=== PATIENT | female | born 1955 | race Caucasian/White ===

== ENCOUNTER 2020-05-26 09:36 | Outpatient (CLI) | payer BC, SELFPAY ==
--- NOTE | ~2020-05-26 | MM_ITS ---
EXAMINATION: MM screening [facility] w [facility] HISTORY: Screening mammogram TECHNIQUE: Craniocaudal and mediolateral oblique 3-D tomosynthesis images were obtained and synthetic 2-D images were generated. CAD analysis was submitted and interpreted. COMPARISON: 05/12/2019, 05/19/2018, 05/07/2017 bilateral digital screening mammogram examinations BREAST PARENCHYMAL COMPOSITION: There are scattered areas of fibroglandular density. FINDINGS: Multiple stable bilateral benign appearing intramammary lymph nodes are again noted. There is no evidence of suspicious mass, calcification, or architectural distortion to suggest malignancy i n either breast. There has been no suspicious interval change. IMPRESSION: 1. No mammographic evidence of malignancy. 2. Recommend routine screening mammography in one year. BI-RADS Category 2: Benign finding(s). Reviewed, dictated and finalized at location A.
== END 2020-05-26 09:37 | disposition home or self-care (01) ==
LOC: ANHIMG 09:39
PROVIDERS: PCP Family Medicine; Visit Provider Nurse Practitioner Obstetrics & Gynecology
DX: Z12.31 Encounter for screening mammogram for malignant neoplasm of breast (principal)
CPT/HCPCS: 77063; 77067

== ENCOUNTER 2021-07-10 13:09 | Outpatient (CLI) | payer BC, SELFPAY ==
--- NOTE | ~2021-07-10 | DEXA_ITS ---
Bone Density Report Name: Blanca Saxena Age: 65 Sex: Female Ethnicity: White Date of : 1955 Indication: postmenopausal osteoporosis; monitoring treatment; Referring Provider: Carol, Anisa Pollard Study: Bone densitometry was performed. Exam Date: July 10, 2021 Accession number: [id number] Bone Density: Region BMD T-score Z-score Classification AP Spine (L1, L2) 0.748 -2.1 -0.5 Osteopenia Femoral Neck (Left) 0.700 -1.3 0.1 Osteopenia Total Hip (Left) 0.709 -1.9 -0.8 Osteopenia Total Hip Bilateral Avg 0.742 -1.7 -0.5 Osteopenia Femoral Neck (Right) 0.723 -1.1 0.3 Osteopenia Total Hip (Right) 0.774 -1.4 -0.2 Osteopenia World Health Organization criteria for BMD impression classify patients as: Normal (T-score at or above -1.0), Osteopenia (T-score between -1.0 and -2.5), or Osteoporosis (T-score at or below -2.5). 10-year Fracture Risk: FRAX not reported because: Treated for osteoporosis Previous Exams: Region Exam Age BMD T-score BMD Change BMD Change Date g/cm2 vs Baseline vs Previous AP Spine(L1, L2) 07/10/2021 65 0.748 -2.1 0.039(5.4%)# 0.040(5.7%)# 05/12/2019 63 0.708 -2.5 -0.002(-0.2%)# -0.018(-2.5%) 05/07/2017 61 0.727 -2.3 0.017(2.4%)# -0.017(-2.2%) 04/29/2015 59 0.743 -2.1 0.033(4.7%)# 0.006(0.8%)# 04/24/2013 57 0.738 -2.2 0.028(3.9%)# -0.047(-6.0%)# 04/19/2011 55 0.785 -1.8 0.075(10.5%)* -0.021(-2.6%) 04/17/2010 54 0.806 -1.6 0.096(13.5%)* 0.014(1.8%) 04/12/2009 53 0.791 -1.7 0.081(11.5%)* 0.081(11.5%)* 04/08/2008 52 0.710 -2.4 Total Hip(Left) 07/10/2021 65 0.709 -1.9 -0.010(-1.3%)# -0.002(-0.3%)# 05/12/2019 63 0.711 -1.9 -0.008(-1.1%)# -0.002(-0.3%) 05/07/2017 61 0.713 -1.9 -0.006(-0.8%)# 0.012(1.7%) 04/29/2015 59 0.701 -2.0 -0.018(-2.5%)# -0.053(-7.0%)# 04/24/2013 57 0.754 -1.5 0.035(4.9%)# 0.006(0.8%)# 04/19/2011 55 0.748 -1.6 0.029(4.1%)* -0.009(-1.1%) 04/17/2010 54 0.756 -1.5 0.038(5.3%)* 0.013(1.7%) 04/12/2009 53 0.743 -1.6 0.025(3.5%) 0.025(3.5%) 04/08/2008 52 0.718 -1.8 Total Hip(Right) 07/10/2021 65 0.774 -1.4 0.010(1.3%)# 0.015(2.0%)# 05/12/2019 63 0.759 -1.5 -0.005(-0.7%)# -0.009(-1.2%) 05/07/2017 61 0.768 -1.4 0.004(0.5%)# -0.003(-0.4%) 04/29/2015 59 0.771 -1.4 0.007(0.9%)# -0.018(-2.2%)# 04/24/2013 57 0.788 -1.3 0.024(3.2%)# 0.006(0.8%)# 04/19/2011 55 0.782 -1.3 0.018(2.3%) -0.020(-2.5%) 04/17/2010 54 0.802 -1.1 0.038(5.0%)* 0.018(2.3%) 04/12/2009 53 0.784 -1.3 0.020(2.7%) 0.020(2.7%)
--- NOTE | ~2021-07-10 | MM_ITS ---
EXAMINATION: MM screening [facility] BI w steven HISTORY: Screening TECHNIQUE: Craniocaudal and mediolateral oblique 3-D tomosynthesis images were obtained and synthetic 2-D images were generated. CAD analysis was submitted and interpreted. COMPARISON: Comparison to multiple prior studies sequentially, with oldest reviewed study dated 04/29. BREAST PARENCHYMAL COMPOSITION: There are scattered areas of fibroglandular density. FINDINGS: Stable benign-appearing bilateral breast masses in the upper outer quadrants. There is no e vidence of suspicious mass, calcification, or architectural distortion to suggest malignancy in eithe r breast. There has been no suspicious interval change. IMPRESSION: 1. No mammographic evidence of malignancy. 2. Recommend routine screening mammography in one year. BI-RADS Category 2: Benign finding(s). Reviewed, dictated and finalized at location A.
== END 2021-07-10 13:10 | disposition home or self-care (01) ==
LOC: ANHIMG 07-11 13:09
PROVIDERS: PCP Family Medicine; Visit Provider Nurse Practitioner Obstetrics & Gynecology
DX: Z12.31 Encounter for screening mammogram for malignant neoplasm of breast (principal); Z78.0 Asymptomatic menopausal state; M85.89 Other specified disorders of bone density and structure, multiple sites
CPT/HCPCS: 77063; 77067; 77080

== ENCOUNTER 2022-08-08 08:23 | Outpatient (CLI) | payer BC, SELFPAY ==
--- NOTE | ~2022-08-08 | MM_ITS ---
EXAMINATION: MM screening [facility] w [facility] HISTORY: Screening mammogram TECHNIQUE: Craniocaudal and mediolateral oblique 3-D tomosynthesis images were obtained and synthetic 2-D images were generated. CAD analysis was submitted and interpreted. COMPARISON: Serial bilateral screening mammogram examinations dating back to 04/18/2008 BREAST PARENCHYMAL COMPOSITION: There are scattered areas of fibroglandular density. FINDINGS: Multiple bilateral circumscribed benign-appearing intramammary lymph nodes are again eviden t. There is no evidence of suspicious mass, calcification, or architectural distortion to suggest mal ignancy in either breast. There has been no suspicious interval change. IMPRESSION: 1. No mammographic evidence of malignancy. 2. Recommend routine screening mammography in one year. BI-RADS Category 2: Benign finding(s). Reviewed, dictated and finalized at location A.
== END 2022-08-08 08:24 | disposition home or self-care (01) ==
PROVIDERS: PCP Family Medicine; Visit Provider Nurse Practitioner Obstetrics & Gynecology
DX: Z12.31 Encounter for screening mammogram for malignant neoplasm of breast (principal)
CPT/HCPCS: 77063; 77067

== ENCOUNTER 2023-11-11 09:35 | Outpatient (CLI) | payer BC, SELFPAY ==
--- NOTE | ~2023-11-11 | MM_ITS ---
EXAMINATION: MM screening [facility] BI w steven HISTORY: Screening mammogram TECHNIQUE: Craniocaudal and mediolateral oblique 3-D tomosynthesis images were obtained and synthetic 2-D images were generated. CAD analysis was submitted and interpreted. COMPARISON: 08/08/2022, 07/10/2021, 05/26/2020 BREAST PARENCHYMAL COMPOSITION:There are scattered areas of fibroglandular density. FINDINGS: Stable bilateral nodules in the upper, outer quadrants, likely intramammary lymph nodes No suspicious mass, calcification, or architectural distortion are identified in either breast to sugges t malignancy. There has been no suspicious interval change. IMPRESSION: No mammographic evidence of malignancy. Recommend routine screening mammography in one year. BI-RADS Category 2: Benign finding(s). Reviewed, dictated and finalized at [facility]. GE LOADER
== END 2023-11-11 09:36 | disposition home or self-care (01) ==
LOC: ANHIMG 09:37
PROVIDERS: PCP Family Medicine; Visit Provider Nurse Practitioner Obstetrics & Gynecology
DX: Z12.31 Encounter for screening mammogram for malignant neoplasm of breast (principal)
CPT/HCPCS: 77063; 77067

== ENCOUNTER 2024-12-09 15:00 | Outpatient (CLI) | payer BC, SELFPAY ==
--- NOTE | ~2024-12-09 | MM_ITS ---
EXAMINATION: MM screening [facility] BI w steven HISTORY: Screening TECHNIQUE: Craniocaudal and mediolateral oblique 3-D tomosynthesis images were obtained and synthetic 2-D images were generated. CAD analysis was submitted and interpreted. COMPARISON: Comparison to multiple prior studies sequentially, with oldest reviewed study dated 07/2018. BREAST PARENCHYMAL COMPOSITION: There are scattered areas of fibroglandular density. FINDINGS: There is no evidence of suspicious mass, calcification, or architectural distortion to sugg est malignancy in either breast. There has been no suspicious interval change. IMPRESSION: 1. No mammographic evidence of malignancy. 2. Recommend routine screening mammography in one year. BI-RADS Category 1: Negative. Reviewed, dictated and finalized at location B. 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
== END 2024-12-09 15:01 | disposition home or self-care (01) ==
LOC: ANHIMG 15:02
PROVIDERS: PCP Family Medicine; Visit Provider Obstetrics & Gynecology
DX: Z12.31 Encounter for screening mammogram for malignant neoplasm of breast (principal)
CPT/HCPCS: 77063; 77067